=== PATIENT | male | born 1960 | race African-American/Black ===

== ENCOUNTER 2021-08-05 10:17 | Inpatient (IN) | payer OTHER ==
[2021-08-05] MEDS ORDERED: LIDOCAINE 5% TOPICAL PATCH TP ONE (11:18)
[2021-08-05] MEDS ORDERED: ACETAMINOPHEN 1000 MG/100 ML VIAL IVPB ONE (11:18)
[2021-08-05] MEDS ORDERED: LIDOCAINE 5% TOPICAL PATCH ONE (12:02)
[2021-08-05] MEDS ORDERED: ACETAMINOPHEN INJECTION 100 ML IVPB ONE (12:03)
[2021-08-05 12:09] LABS: BASO % 0.6 % (0-2.0); EOS % 0.1 % (0-4.5); HEMATOCRIT 32.4 % (35.4-49); HEMOGLOBIN 10.5 GM/dL (11.7-16.9); LYMPH % 18.6 % (8-40); MCH 23.7 pg (25.7-33.7); MCHC 32.6 g/dl (32.0-35.9); MEAN CELL VOLUME 72.6 fl (80-96); MEAN PLT VOLUME 8.4 fl (7.5-11.1); MONO % 10.6 % (3.8-10.2); NEUT % 70.1 % (42.8-82.8); PLATELET COUNT 119 10^3/uL (134-434); RBC 4.46 M/mm3 (4.00-5.60); RDW 15.9 % (11.9-15.9); WHITE BLOOD COUNT 5.5 K/mm3 (4.0-10.0)
[2021-08-05 12:10] LABS: VENOUS BASE EXCESS 0.2 mmol/L (-2-2); VENOUS O2 SATURATION 24.7 % (70-80); VENOUS PCO2 44.7 mmHg (38-52); VENOUS PH 7.376 (7.310-7.410)
[2021-08-05 12:16] LABS: INR 1.49 (0.83-1.09); PROTHROMBIN TIME (PATIENT) 16.7 SEC (9.7-13.0)
[2021-08-05 12:18] LABS: ACTIVATED PTT 35.4 SECONDS (25.2-36.5)
[2021-08-05 12:20] LABS: EPI CELLS 3 /uL (0-25.1); HYALINE CASTS 0 /uL (0-3.1); PH,URINE >= 9.0 (5.0-8.0); URINE APPEARANCE CLEAR; URINE BACTERIA 1 /uL (0-1359); URINE BILIRUBIN NEGATIVE (NEGATIVE); URINE COLOR YELLOW; URINE GLUCOSE (UA) NEGATIVE (NEGATIVE); URINE KETONE NEGATIVE (NEGATIVE); URINE LEUK ESTERASE NEGATIVE (NEGATIVE); URINE NITRITE NEGATIVE (NEGATIVE); URINE PROTEIN 3+ (NEGATIVE); URINE RBC 11 /uL (0-23.9); URINE UROBILINOGEN 0.2 mg/dL (0.2-1.0); URINE WBC 2 /uL (0-25.8)
[2021-08-05 12:27] LABS: CHLORIDE 96 mmol/L (98-107); SODIUM 132 mmol/L (136-145)
[2021-08-05 12:29] LABS: CALCIUM 8.7 mg/dL (8.5-10.1)
[2021-08-05 12:30] LABS: ALBUMIN 3.3 g/dl (3.4-5.0); ANION GAP 12 MMOL/L (8-16); BLOOD UREA NITROGEN 58.8 mg/dL (7-18); CO2 25 mmol/L (21-32); GLUCOSE,RANDOM 88 mg/dL (74-106); MAGNESIUM 2.8 mg/dL (1.8-2.4)
[2021-08-05 12:33] LABS: PHOSPHOROUS 4.5 mg/dL (2.5-4.9); SGOT/AST 34 U/L (15-37); SGPT/ALT 39 U/L (13-61)
[2021-08-05 12:34] LABS: BILIRUBIN,TOTAL 0.5 mg/dL (0.2-1); TOT PROT 7.2 g/dl (6.4-8.2)
[2021-08-05 12:36] LABS: ALK PHOS 82 U/L (45-117)
[2021-08-05 13:07] LABS: CREATININE 11.3 mg/dL (0.55-1.3)
[2021-08-05] MEDS ORDERED: ASPIRIN 81 MG CHEWABLE TABLETS PO ONE (13:48)
[2021-08-05] MEDS ORDERED: ASPIRIN 81 MG CHEWABLE TABLETS ONE (14:19)
[2021-08-05] MEDS ORDERED: ACETAMINOPHEN 325 MG TABLET (FP) PO PRN (15:05)
[2021-08-05] MEDS ORDERED: DEXAMETHASONE SOD PHOSPHATE 10 MG/1 ML VIAL IVPUSH ONE (15:58)
[2021-08-05] MEDS ORDERED: DEXAMETHASONE SOD PHOSPHATE 10 MG/1 ML VIAL ONE (16:31)
[2021-08-05] MEDS: INSULIN SLIDING SCALE (NOVOLOG) 1 VIAL SQ SCH ×2 (16:54→22:47)
[2021-08-05] MEDS ORDERED: ATORVASTATIN CA 20 MG TABLET (FP) ONE (22:00)
[2021-08-05] MEDS ORDERED: LIDOCAINE PATCH REMOVAL MC ONE (22:00)
[2021-08-05] MEDS ORDERED: APIXABAN 5 MG TABLET ONE (22:01)
[2021-08-05] MEDS: ATORVASTATIN CA 20 MG TABLET (FP) PO SCH (22:05)
[2021-08-05] MEDS: APIXABAN 5 MG TABLET PO SCH (22:05)
[2021-08-05] MEDS ORDERED: SODIUM CHLORIDE 250 ML IV PRN (22:41)
[2021-08-06] MEDS: INSULIN SLIDING SCALE (NOVOLOG) 1 VIAL SQ SCH ×4 (07:59→22:37)
[2021-08-06 08:04] LABS: BASO % 0.2 % (0-2.0); HEMATOCRIT 33.1 % (35.4-49); MCH 23.7 pg (25.7-33.7); MCHC 33.1 g/dl (32.0-35.9); MEAN CELL VOLUME 71.5 fl (80-96); MEAN PLT VOLUME 9.6 fl (7.5-11.1); MONO % 4.2 % (3.8-10.2); NEUT % 84.6 % (42.8-82.8); PLATELET COUNT 127 10^3/uL (134-434); RBC 4.63 M/mm3 (4.00-5.60); RDW 15.8 % (11.9-15.9); WHITE BLOOD COUNT 4.8 K/mm3 (4.0-10.0)
[2021-08-06 08:20] LABS: CHLORIDE 97 mmol/L (98-107); SODIUM 138 mmol/L (136-145)
[2021-08-06 08:22] LABS: CALCIUM 8.5 mg/dL (8.5-10.1)
[2021-08-06 08:23] LABS: ALBUMIN 2.9 g/dl (3.4-5.0); ANION GAP 12 MMOL/L (8-16); CO2 29 mmol/L (21-32); GLUCOSE,RANDOM 152 mg/dL (74-106)
[2021-08-06 08:25] LABS: CREATININE 6.9 mg/dL (0.55-1.3); SGPT/ALT 40 U/L (13-61)
[2021-08-06 08:26] LABS: SGOT/AST 35 U/L (15-37)
[2021-08-06 08:27] LABS: BILIRUBIN,TOTAL 0.5 mg/dL (0.2-1); TOT PROT 6.8 g/dl (6.4-8.2)
[2021-08-06 08:28] LABS: ALK PHOS 81 U/L (45-117)
[2021-08-06] MEDS: FAMOTIDINE 20 MG TABLET PO SCH (08:30)
[2021-08-06] MEDS: METOPROLOL TARTRATE 50 MG TABLET (FP) PO SCH ×2 (08:30→22:35)
[2021-08-06] MEDS: APIXABAN 5 MG TABLET PO SCH (08:30)
[2021-08-06] MEDS: FERROUS SO4 325 MG TABLET (FP) PO SCH (08:30)
[2021-08-06 09:03] LABS: BLOOD UREA NITROGEN 31.4 mg/dL (7-18)
[2021-08-06] MEDS ORDERED: METOPROLOL TARTRATE 50 MG TABLET (FP) ONE (09:18)
[2021-08-06] MEDS ORDERED: APIXABAN 5 MG TABLET ONE (09:18)
[2021-08-06] MEDS ORDERED: FAMOTIDINE 20 MG TABLET ONE (09:18)
[2021-08-06] MEDS ORDERED: levETIRAcetam 500 MG TABLET (FP) PO ONE (09:18)
[2021-08-06] MEDS ORDERED: FERROUS SO4 325 MG TABLET (FP) ONE (09:19)
[2021-08-06] MEDS ORDERED: NIFEdipine E.R. 30 MG TABLET ONE (09:19)
[2021-08-06] MEDS ORDERED: LOSARTAN POTASSIUM 50 MG TABLET ONE (09:19)
[2021-08-06] MEDS ORDERED: levETIRAcetam 250 MG TABLET PO SCH (10:00)
[2021-08-06] MEDS ORDERED: LOSARTAN POTASSIUM 50 MG TABLET PO SCH (10:00)
[2021-08-06] MEDS ORDERED: NIFEdipine E.R 60 MG TABLET PO SCH (10:00)
[2021-08-06] MEDS: CINACALCET HCL 30 MG TAB (FP) PO SCH (10:30)
[2021-08-06] MEDS: EZETIMIBE 10 MG TABLET (FP) PO SCH (10:30)
[2021-08-06] MEDS ORDERED: SODIUM CHLORIDE NASAL SPRAY 44 ML BOTTLE NS ONE (11:02)
[2021-08-06] MEDS: DEXAMETHASONE SOD PHOSPHATE 10 MG/1 ML VIAL IVPUSH SCH (14:28)
[2021-08-06] MEDS ORDERED: REMDESIVIR 200 MG in SODIUM CHLORIDE 250 ML IVPB ONE (15:00)
[2021-08-06] MEDS ORDERED: DEXAMETHASONE SOD PHOSPHATE 10 MG/1 ML VIAL ONE (15:23)
[2021-08-06] MEDS ORDERED: VANCOMYCIN 1 GRAM (PRE-DOCKED) 1,000 MG/250 ML BAG IVPB ONE ×2 (17:38→23:30)
[2021-08-06] MEDS ORDERED: CEFTRIAXONE 1 GM/50 ML BAG ONE (20:29)
[2021-08-06] MEDS: CEFTRIAXONE 1 GM in DEXTROSE 5%-WATER - 50 ML IVPB SCH (20:35)
[2021-08-06 21:14] VITALS: BMI 27.0
[2021-08-06] MEDS ORDERED: APIXABAN 2.5 MG TABLET PO SCH (22:00)
[2021-08-06] MEDS: ATORVASTATIN CA 20 MG TABLET (FP) PO SCH (22:35)
[2021-08-06] MEDS: levETIRAcetam 250 MG TABLET PO SCH (22:35)
[2021-08-07 00:48] LABS: EPI CELLS 4 /uL (0-25.1); HYALINE CASTS 0 /uL (0-3.1); PH,URINE 8.5 (5.0-8.0); URINE APPEARANCE CLEAR; URINE BACTERIA 4 /uL (0-1359); URINE BILIRUBIN NEGATIVE (NEGATIVE); URINE COLOR YELLOW; URINE GLUCOSE (UA) TRACE (NEGATIVE); URINE KETONE NEGATIVE (NEGATIVE); URINE LEUK ESTERASE NEGATIVE (NEGATIVE); URINE NITRITE NEGATIVE (NEGATIVE); URINE PROTEIN 3+ (NEGATIVE); URINE RBC 3 /uL (0-23.9); URINE UROBILINOGEN 0.2 mg/dL (0.2-1.0); URINE WBC 3 /uL (0-25.8)
[2021-08-07] MEDS: INSULIN SLIDING SCALE (NOVOLOG) 1 VIAL SQ SCH ×4 (06:22→21:41)
[2021-08-07] MEDS: FERROUS SO4 325 MG TABLET (FP) PO SCH (08:39)
[2021-08-07] MEDS: METOPROLOL TARTRATE 50 MG TABLET (FP) PO SCH ×3 (08:46→21:39)
[2021-08-07 08:52] LABS: HEMOGLOBIN 11.2 GM/dL (11.7-16.9); LYMPH % 10.2 % (8-40); MCH 23.8 pg (25.7-33.7); MEAN CELL VOLUME 72.1 fl (80-96); MEAN PLT VOLUME 9.8 fl (7.5-11.1); MONO % 5.5 % (3.8-10.2); NEUT % 84.3 % (42.8-82.8); PLATELET COUNT 154 10^3/uL (134-434); RBC 4.71 M/mm3 (4.00-5.60); RDW 15.8 % (11.9-15.9)
[2021-08-07 09:03] LABS: CHLORIDE 95 mmol/L (98-107); SODIUM 136 mmol/L (136-145)
[2021-08-07 09:05] LABS: ALBUMIN 3.2 g/dl (3.4-5.0); ANION GAP 15 MMOL/L (8-16); CALCIUM 9.1 mg/dL (8.5-10.1); CO2 26 mmol/L (21-32)
[2021-08-07 09:06] LABS: GLUCOSE,RANDOM 83 mg/dL (74-106); MAGNESIUM 2.7 mg/dL (1.8-2.4)
[2021-08-07 09:08] LABS: SGOT/AST 53 U/L (15-37); SGPT/ALT 59 U/L (13-61)
[2021-08-07 09:09] LABS: LDH 267 U/L (87-246)
[2021-08-07 09:10] LABS: BILIRUBIN,TOTAL 0.5 mg/dL (0.2-1); TOT PROT 7.4 g/dl (6.4-8.2)
[2021-08-07 09:11] LABS: ALK PHOS 110 U/L (45-117)
[2021-08-07 09:37] LABS: BLOOD UREA NITROGEN 58.7 mg/dL (7-18); CREATININE 9.2 mg/dL (0.55-1.3)
[2021-08-07] MEDS ORDERED: APIXABAN 2.5 MG TABLET PO SCH (10:00)
[2021-08-07] MEDS ORDERED: DEXTROSE 5%-WATER - 50 ML IVPB ONE (10:23)
[2021-08-07] MEDS ORDERED: cefTRIAXone SODIUM 1 GM VIAL ONE (10:23)
[2021-08-07] MEDS: LOSARTAN POTASSIUM 50 MG TABLET PO SCH (10:34)
[2021-08-07] MEDS: ASPIRIN COATED 81 MG TABLET.EC PO SCH (10:34)
[2021-08-07] MEDS: CINACALCET HCL 30 MG TAB (FP) PO SCH (10:34)
[2021-08-07] MEDS: levETIRAcetam 250 MG TABLET PO SCH ×2 (10:35→21:39)
[2021-08-07] MEDS: EZETIMIBE 10 MG TABLET (FP) PO SCH (10:35)
[2021-08-07] MEDS: FAMOTIDINE 20 MG TABLET PO SCH (10:35)
[2021-08-07] MEDS: CEFTRIAXONE 1 GM in DEXTROSE 5%-WATER - 50 ML IVPB SCH (10:36)
[2021-08-07] MEDS: DEXAMETHASONE SOD PHOSPHATE 10 MG/1 ML VIAL IVPUSH SCH (10:36)
[2021-08-07 11:15] LABS: IRON SERUM 70 ug/dL (50-175); TOTAL IRON BINDING CAPACITY 154 ug/dL (250-450)
[2021-08-07] MEDS ORDERED: SODIUM CHLORIDE 250 ML IV PRN (11:39)
[2021-08-07] MEDS: REMDESIVIR 100 MG in SODIUM CHLORIDE 250 ML IVPB SCH (19:19)
[2021-08-07] MEDS: ATORVASTATIN CA 20 MG TABLET (FP) PO SCH (21:39)
[2021-08-07] MEDS: APIXABAN 5 MG TABLET PO SCH (21:39)
[2021-08-08] MEDS: INSULIN SLIDING SCALE (NOVOLOG) 1 VIAL SQ SCH ×4 (06:05→21:21)
[2021-08-08 08:34] LABS: BASO % 0.1 % (0-2.0); HEMATOCRIT 31.7 % (35.4-49); HEMOGLOBIN 10.3 GM/dL (11.7-16.9); LYMPH % 8.7 % (8-40); MCH 23.5 pg (25.7-33.7); MCHC 32.4 g/dl (32.0-35.9); MEAN CELL VOLUME 72.5 fl (80-96); MEAN PLT VOLUME 9.6 fl (7.5-11.1); MONO % 10.2 % (3.8-10.2); PLATELET COUNT 136 10^3/uL (134-434); RBC 4.37 M/mm3 (4.00-5.60); RDW 15.8 % (11.9-15.9); WHITE BLOOD COUNT 6.5 K/mm3 (4.0-10.0)
[2021-08-08] MEDS ORDERED: cefTRIAXone SODIUM 1 GM VIAL ONE (08:59)
[2021-08-08] MEDS ORDERED: DEXTROSE 5%-WATER - 50 ML IVPB ONE (08:59)
[2021-08-08 09:03] LABS: CHLORIDE 96 mmol/L (98-107); SODIUM 136 mmol/L (136-145)
[2021-08-08 09:12] LABS: SGPT/ALT 78 U/L (13-61)
[2021-08-08 09:13] LABS: ALBUMIN 2.7 g/dl (3.4-5.0); GLUCOSE,RANDOM 103 mg/dL (74-106)
[2021-08-08 09:14] LABS: BILIRUBIN,TOTAL 0.3 mg/dL (0.2-1); TOT PROT 6.3 g/dl (6.4-8.2)
[2021-08-08 09:15] LABS: ALK PHOS 114 U/L (45-117); CALCIUM 8.9 mg/dL (8.5-10.1)
[2021-08-08 09:16] LABS: ANION GAP 18 MMOL/L (8-16); CO2 22 mmol/L (21-32); MAGNESIUM 2.8 mg/dL (1.8-2.4); SGOT/AST 60 U/L (15-37)
[2021-08-08 09:22] LABS: BLOOD UREA NITROGEN 84.6 mg/dL (7-18); CREATININE 10.7 mg/dL (0.55-1.3)
[2021-08-08] MEDS: CEFTRIAXONE 1 GM in DEXTROSE 5%-WATER - 50 ML IVPB SCH (09:42)
[2021-08-08] MEDS: FAMOTIDINE 20 MG TABLET PO SCH (09:44)
[2021-08-08] MEDS: levETIRAcetam 250 MG TABLET PO SCH ×2 (09:44→21:21)
[2021-08-08] MEDS: METOPROLOL TARTRATE 50 MG TABLET (FP) PO SCH ×2 (09:44→21:21)
[2021-08-08] MEDS: LOSARTAN POTASSIUM 50 MG TABLET PO SCH (09:44)
[2021-08-08] MEDS: APIXABAN 5 MG TABLET PO SCH ×2 (09:44→21:22)
[2021-08-08] MEDS: CINACALCET HCL 30 MG TAB (FP) PO SCH (09:45)
[2021-08-08] MEDS: FERROUS SO4 325 MG TABLET (FP) PO SCH (09:45)
[2021-08-08] MEDS: ASPIRIN COATED 81 MG TABLET.EC PO SCH (09:45)
[2021-08-08] MEDS: DEXAMETHASONE SOD PHOSPHATE 10 MG/1 ML VIAL IVPUSH SCH (09:46)
[2021-08-08] MEDS: EZETIMIBE 10 MG TABLET (FP) PO SCH (09:56)
[2021-08-08] MEDS: REMDESIVIR 100 MG in SODIUM CHLORIDE 250 ML IVPB SCH (17:21)
[2021-08-08] MEDS: ATORVASTATIN CA 20 MG TABLET (FP) PO SCH (21:22)
[2021-08-09] MEDS: INSULIN SLIDING SCALE (NOVOLOG) 1 VIAL SQ SCH ×4 (06:04→21:47)
[2021-08-09 07:11] LABS: BASO % 0.1 % (0-2.0); HEMATOCRIT 33.6 % (35.4-49); LYMPH % 12.4 % (8-40); MCH 23.6 pg (25.7-33.7); MCHC 32.8 g/dl (32.0-35.9); MEAN CELL VOLUME 71.9 fl (80-96); MEAN PLT VOLUME 10.2 fl (7.5-11.1); MONO % 10.6 % (3.8-10.2); NEUT % 76.9 % (42.8-82.8); PLATELET COUNT 186 10^3/uL (134-434); RBC 4.67 M/mm3 (4.00-5.60); RDW 15.5 % (11.9-15.9); WHITE BLOOD COUNT 7.2 K/mm3 (4.0-10.0)
[2021-08-09 07:31] LABS: CHLORIDE 99 mmol/L (98-107); SODIUM 138 mmol/L (136-145)
[2021-08-09 07:33] LABS: CALCIUM 8.8 mg/dL (8.5-10.1)
[2021-08-09 07:34] LABS: ANION GAP 11 MMOL/L (8-16); BLOOD UREA NITROGEN 66.8 mg/dL (7-18); CO2 28 mmol/L (21-32); GLUCOSE,RANDOM 101 mg/dL (74-106); MAGNESIUM 2.4 mg/dL (1.8-2.4)
[2021-08-09 07:36] LABS: SGPT/ALT 113 U/L (13-61)
[2021-08-09 07:37] LABS: PHOSPHOROUS 6.4 mg/dL (2.5-4.9); SGOT/AST 73 U/L (15-37)
[2021-08-09 07:38] LABS: BILIRUBIN,TOTAL 0.4 mg/dL (0.2-1); TOT PROT 6.9 g/dl (6.4-8.2)
[2021-08-09 07:39] LABS: ALK PHOS 131 U/L (45-117)
[2021-08-09 07:40] LABS: LDH 260 U/L (87-246)
[2021-08-09 07:45] LABS: CREATININE 7.7 mg/dL (0.55-1.3)
[2021-08-09] MEDS ORDERED: cefTRIAXone SODIUM 1 GM VIAL ONE (08:21)
[2021-08-09] MEDS ORDERED: DEXTROSE 5%-WATER - 50 ML IVPB ONE (08:21)
[2021-08-09] MEDS: ASPIRIN COATED 81 MG TABLET.EC PO SCH (09:45)
[2021-08-09] MEDS: DEXAMETHASONE SOD PHOSPHATE 10 MG/1 ML VIAL IVPUSH SCH (09:45)
[2021-08-09] MEDS: LOSARTAN POTASSIUM 50 MG TABLET PO SCH (09:45)
[2021-08-09] MEDS: FERROUS SO4 325 MG TABLET (FP) PO SCH (09:45)
[2021-08-09] MEDS: FAMOTIDINE 20 MG TABLET PO SCH (09:46)
[2021-08-09] MEDS: APIXABAN 5 MG TABLET PO SCH ×2 (09:46→21:42)
[2021-08-09] MEDS: CEFTRIAXONE 1 GM in DEXTROSE 5%-WATER - 50 ML IVPB SCH (09:46)
[2021-08-09] MEDS: CINACALCET HCL 30 MG TAB (FP) PO SCH (09:46)
[2021-08-09] MEDS: EZETIMIBE 10 MG TABLET (FP) PO SCH (09:46)
[2021-08-09] MEDS: METOPROLOL TARTRATE 50 MG TABLET (FP) PO SCH ×2 (09:46→21:42)
[2021-08-09] MEDS: levETIRAcetam 250 MG TABLET PO SCH ×2 (09:46→21:42)
[2021-08-09] MEDS: REMDESIVIR 100 MG in SODIUM CHLORIDE 250 ML IVPB SCH (17:15)
[2021-08-09] MEDS: ATORVASTATIN CA 20 MG TABLET (FP) PO SCH (21:42)
[2021-08-10] MEDS: INSULIN SLIDING SCALE (NOVOLOG) 1 VIAL SQ SCH ×3 (06:19→17:25)
[2021-08-10] MEDS: FERROUS SO4 325 MG TABLET (FP) PO SCH (08:25)
[2021-08-10 08:41] LABS: EOS % 0.1 % (0-4.5); HEMATOCRIT 31.6 % (35.4-49); HEMOGLOBIN 10.4 GM/dL (11.7-16.9); LYMPH % 12.7 % (8-40); MCH 23.8 pg (25.7-33.7); MEAN CELL VOLUME 72.1 fl (80-96); MONO % 10.1 % (3.8-10.2); NEUT % 77.1 % (42.8-82.8); PLATELET COUNT 188 10^3/uL (134-434); RBC 4.38 M/mm3 (4.00-5.60); RDW 15.7 % (11.9-15.9); WHITE BLOOD COUNT 8.3 K/mm3 (4.0-10.0)
[2021-08-10] MEDS ORDERED: cefTRIAXone SODIUM 1 GM VIAL ONE (08:59)
[2021-08-10] MEDS ORDERED: DEXTROSE 5%-WATER - 50 ML IVPB ONE (08:59)
[2021-08-10 09:06] LABS: CHLORIDE 99 mmol/L (98-107); SODIUM 138 mmol/L (136-145)
[2021-08-10 09:11] LABS: ALBUMIN 2.6 g/dl (3.4-5.0); ANION GAP 15 MMOL/L (8-16); CALCIUM 8.7 mg/dL (8.5-10.1); CO2 24 mmol/L (21-32)
[2021-08-10 09:12] LABS: BLOOD UREA NITROGEN 91.3 mg/dL (7-18); GLUCOSE,RANDOM 90 mg/dL (74-106); MAGNESIUM 2.6 mg/dL (1.8-2.4)
[2021-08-10 09:14] LABS: SGOT/AST 65 U/L (15-37); SGPT/ALT 121 U/L (13-61)
[2021-08-10 09:15] LABS: BILIRUBIN,TOTAL 0.4 mg/dL (0.2-1); PHOSPHOROUS 6.5 mg/dL (2.5-4.9)
[2021-08-10 09:16] LABS: ALK PHOS 113 U/L (45-117)
[2021-08-10] MEDS: CEFTRIAXONE 1 GM in DEXTROSE 5%-WATER - 50 ML IVPB SCH (09:17)
[2021-08-10] MEDS: FAMOTIDINE 20 MG TABLET PO SCH (09:17)
[2021-08-10] MEDS: CINACALCET HCL 30 MG TAB (FP) PO SCH (09:17)
[2021-08-10] MEDS: EZETIMIBE 10 MG TABLET (FP) PO SCH (09:17)
[2021-08-10] MEDS: APIXABAN 5 MG TABLET PO SCH (09:18)
[2021-08-10] MEDS: levETIRAcetam 250 MG TABLET PO SCH (09:18)
[2021-08-10] MEDS: ASPIRIN COATED 81 MG TABLET.EC PO SCH (09:18)
[2021-08-10] MEDS: DEXAMETHASONE SOD PHOSPHATE 10 MG/1 ML VIAL IVPUSH SCH (09:19)
[2021-08-10 09:20] LABS: CREATININE 9.5 mg/dL (0.55-1.3)
[2021-08-10] MEDS ORDERED: SODIUM CHLORIDE 250 ML IV PRN (10:55)
[2021-08-10] MEDS ORDERED: REMDESIVIR 100 MG in SODIUM CHLORIDE 250 ML IVPB SCH (15:00)
[2021-08-10] MEDS: METOPROLOL TARTRATE 50 MG TABLET (FP) PO SCH (17:30)
[2021-08-10] MEDS: LOSARTAN POTASSIUM 50 MG TABLET PO SCH (17:30)
[2021-08-10 17:33] VITALS: BP 129/74; PULSE 67; TEMP 98
== END 2021-08-10 20:00 | disposition home or self-care (01) | DRG 177 ==
LOC: JER 10:17 → JERBED 13:33 → J4S 08-06 20:55
PROVIDERS: ADMIT Internal Medicine; ATTEND Internal Medicine
PROC: XW033E5 Introduction of Remdesivir Anti-infective into Peripheral Vein, Percutaneous Approach, New Technology Group 5 (ICD-10-PCS; principal; 2021-08-06)
PROC: 5A1D70Z Performance of Urinary Filtration, Intermittent, Less than 6 Hours Per Day (ICD-10-PCS; 2021-08-06)
PROC: 5A1D70Z Performance of Urinary Filtration, Intermittent, Less than 6 Hours Per Day (ICD-10-PCS; 2021-08-08)
PROC: 5A1D70Z Performance of Urinary Filtration, Intermittent, Less than 6 Hours Per Day (ICD-10-PCS; 2021-08-10)
DX: U07.1 COVID-19 (principal); N18.6 End stage renal disease; I50.33 Acute on chronic diastolic (congestive) heart failure; J96.01 Acute respiratory failure with hypoxia; J12.82 Pneumonia due to coronavirus disease 2019; I13.2 Hypertensive heart and chronic kidney disease with heart failure and with stage 5 chronic kidney disease, or end stage renal disease; I24.8 Other forms of acute ischemic heart disease; I69.351 Hemiplegia and hemiparesis following cerebral infarction affecting right dominant side; E78.5 Hyperlipidemia, unspecified; E87.70 Fluid overload, unspecified; M54.50 Low back pain, unspecified; G40.909 Epilepsy, unspecified, not intractable, without status epilepticus; I25.119 Atherosclerotic heart disease of native coronary artery with unspecified angina pectoris; D69.6 Thrombocytopenia, unspecified; I48.0 Paroxysmal atrial fibrillation; R94.6 Abnormal results of thyroid function studies; Z86.73 Personal history of transient ischemic attack (TIA), and cerebral infarction without residual deficits; Z95.5 Presence of coronary angioplasty implant and graft; Z99.2 Dependence on renal dialysis
CPT/HCPCS: 36415; 71045-TC-FY; 73523-TC-FY; 80053; 81003; 82550; 82553; 82728; 82803; 82962; 83036; 83540; 83550; 83615; 83735; 84100; 84439; 84443; 84481; 84484; 85025; 85379; 85610; 85730; 86140; 86803; 87040; 87086; 87340; 87804; 93005; 93010; 94761; 99291; C9399; C9803; J0131; J1100; U0003; U0005

== ENCOUNTER 2021-08-20 02:48 | Inpatient (IN) | payer OTHER ==
[2021-08-20 02:51] VITALS: BMI 26.9
[2021-08-20] MEDS ORDERED: ACETAMINOPHEN 500 MG TABLET (FP) PO ONE (03:34)
[2021-08-20] MEDS ORDERED: ACETAMINOPHEN 325 MG TABLET (FP) ONE (04:04)
[2021-08-20 04:39] LABS: BASO % 0.9 % (0-2.0); EOS % 1.6 % (0-4.5); HEMATOCRIT 27.3 % (35.4-49); HEMOGLOBIN 8.8 GM/dL (11.7-16.9); LYMPH % 7.4 % (8-40); MCH 23.7 pg (25.7-33.7); MCHC 32.4 g/dl (32.0-35.9); MEAN CELL VOLUME 73.2 fl (80-96); MEAN PLT VOLUME 7.6 fl (7.5-11.1); MONO % 9.8 % (3.8-10.2); NEUT % 80.3 % (42.8-82.8); PLATELET COUNT 265 10^3/uL (134-434); RBC 3.73 M/mm3 (4.00-5.60); WHITE BLOOD COUNT 12.5 K/mm3 (4.0-10.0)
[2021-08-20 04:45] LABS: INR 1.25 (0.83-1.09)
[2021-08-20 04:48] LABS: ACTIVATED PTT 24.3 SECONDS (25.2-36.5)
[2021-08-20 04:58] LABS: CHLORIDE 98 mmol/L (98-107); SODIUM 135 mmol/L (136-145)
[2021-08-20 05:00] LABS: CALCIUM 8.1 mg/dL (8.5-10.1)
[2021-08-20 05:01] LABS: ALBUMIN 2.4 g/dl (3.4-5.0); ANION GAP 11 MMOL/L (8-16); CO2 26 mmol/L (21-32); GLUCOSE,RANDOM 86 mg/dL (74-106); MAGNESIUM 2.8 mg/dL (1.8-2.4)
[2021-08-20 05:04] LABS: PHOSPHOROUS 4.2 mg/dL (2.5-4.9); SGOT/AST 25 U/L (15-37); SGPT/ALT 32 U/L (13-61)
[2021-08-20 05:05] LABS: TOT PROT 6.6 g/dl (6.4-8.2)
[2021-08-20 05:07] LABS: ALK PHOS 92 U/L (45-117)
[2021-08-20 05:30] LABS: BILIRUBIN,TOTAL 0.4 mg/dL (0.2-1); CREATININE 9.2 mg/dL (0.55-1.3)
[2021-08-20] MEDS ORDERED: ASPIRIN 81 MG CHEWABLE TABLETS PO ONE (05:47)
[2021-08-20] MEDS ORDERED: ASPIRIN 81 MG CHEWABLE TABLETS ONE (05:51)
[2021-08-20] MEDS ORDERED: AZITHROMYCIN IVPB 500 MG in DEXTROSE 5%-WATER - 250 ML IVPB ONE (06:24)
[2021-08-20] MEDS ORDERED: VANCOMYCIN 1 GM in D5W (PRE-DOCKED) 1,000 MG/250 ML IVPB ONE (06:26)
[2021-08-20] MEDS ORDERED: AZITHROMYCIN IVPB 500 MG/250 ML BAG IVPB ONE (06:40)
[2021-08-20 07:50] LABS: CHLORIDE 96 mmol/L (98-107); SODIUM 135 mmol/L (136-145)
[2021-08-20 07:52] LABS: ALBUMIN 2.7 g/dl (3.4-5.0); ANION GAP 11 MMOL/L (8-16); BLOOD UREA NITROGEN 45.8 mg/dL (7-18); CALCIUM 8.2 mg/dL (8.5-10.1); CO2 28 mmol/L (21-32)
[2021-08-20 07:53] LABS: GLUCOSE,RANDOM 56 mg/dL (74-106)
[2021-08-20 07:55] LABS: SGOT/AST 25 U/L (15-37); SGPT/ALT 36 U/L (13-61)
[2021-08-20 07:57] LABS: BILIRUBIN,TOTAL 0.6 mg/dL (0.2-1); TOT PROT 6.9 g/dl (6.4-8.2)
[2021-08-20 07:58] LABS: ALK PHOS 96 U/L (45-117)
[2021-08-20 08:59] LABS: N-TERMINAL BNP 39163.4 pg/ml (5-125)
[2021-08-20] MEDS ORDERED: DEXTROSE 50%-WATER - 25 GM/50 ML VIAL IVPUSH ONE (09:17)
[2021-08-20] MEDS ORDERED: levETIRAcetam 500 MG TABLET (FP) PO SCH (10:00)
[2021-08-20] MEDS ORDERED: APIXABAN 5 MG TABLET ONE (10:37)
[2021-08-20] MEDS ORDERED: levETIRAcetam 500 MG TABLET (FP) PO ONE ×2 (10:37→22:36)
[2021-08-20] MEDS ORDERED: DEXTROSE 50%-WATER 25 GM/50 ML DISP.SYRIN ONE (10:38)
[2021-08-20] MEDS ORDERED: METOPROLOL TARTRATE 50 MG TABLET (FP) ONE (10:38)
[2021-08-20] MEDS: APIXABAN 5 MG TABLET PO SCH ×2 (11:00→22:43)
[2021-08-20] MEDS: CINACALCET HCL 30 MG TAB (FP) PO SCH (11:00)
[2021-08-20] MEDS: METOPROLOL TARTRATE 50 MG TABLET (FP) PO SCH ×2 (11:00→22:43)
[2021-08-20] MEDS: SEVELAMER CARBONATE 800 MG TAB (FP) PO SCH ×2 (11:44→18:06)
[2021-08-20] MEDS ORDERED: FUROSEMIDE 40 MG/4 ML INJECTABLE VIAL IVPB ONE (18:21)
[2021-08-20] MEDS ORDERED: FUROSEMIDE 40 MG/4 ML INJECTABLE VIAL ONE (18:55)
[2021-08-20] MEDS ORDERED: levETIRAcetam 250 MG TABLET PO ONE (22:36)
[2021-08-20] MEDS: ATORVASTATIN CA 20 MG TABLET (FP) PO SCH (22:43)
[2021-08-20] MEDS ORDERED: ACETAMINOPHEN 1000 MG/100 ML VIAL IVPB ONE (23:14)
[2021-08-21 01:58] LABS: HEMATOCRIT 26.4 % (35.4-49); HEMOGLOBIN 8.5 GM/dL (11.7-16.9); MCH 23.4 pg (25.7-33.7); MCHC 32.2 g/dl (32.0-35.9); MEAN CELL VOLUME 72.5 fl (80-96); MEAN PLT VOLUME 7.5 fl (7.5-11.1); PLATELET COUNT 284 10^3/uL (134-434); RBC 3.63 M/mm3 (4.00-5.60); RDW 15.5 % (11.9-15.9); WHITE BLOOD COUNT 14.9 K/mm3 (4.0-10.0)
[2021-08-21] MEDS ORDERED: SODIUM CHLORIDE 250 ML IV PRN ×2 (07:41→11:19)
[2021-08-21] MEDS ORDERED: levETIRAcetam 500 MG TABLET (FP) PO ONE ×2 (10:19→21:26)
[2021-08-21] MEDS ORDERED: levETIRAcetam 250 MG TABLET PO ONE ×2 (10:20→21:27)
[2021-08-21] MEDS: SEVELAMER CARBONATE 800 MG TAB (FP) PO SCH ×3 (10:27→17:45)
[2021-08-21] MEDS: METOPROLOL TARTRATE 50 MG TABLET (FP) PO SCH ×2 (10:27→21:29)
[2021-08-21] MEDS: APIXABAN 5 MG TABLET PO SCH ×2 (10:27→21:29)
[2021-08-21] MEDS: CINACALCET HCL 30 MG TAB (FP) PO SCH (10:27)
[2021-08-21] MEDS: ATORVASTATIN CA 20 MG TABLET (FP) PO SCH (21:29)
[2021-08-22] MEDS ORDERED: NITROGLYCERIN 50 MG/10 ML VIAL IVPB SCH (03:45)
[2021-08-22] MEDS ORDERED: MAG HYDROX/AL HYDROX/SIMETH 30 ML UNIT-DOSE CUP PO ONE (03:45)
[2021-08-22] MEDS ORDERED: NITROGLYCERIN 2% OINTMENT - 1GM PACKET TD ONE ×2 (03:46→03:49)
[2021-08-22] MEDS ORDERED: SODIUM CHLORIDE 250 ML IV PRN (07:16)
[2021-08-22 07:32] LABS: HEMATOCRIT 23.5 % (35.4-49); HEMOGLOBIN 7.7 GM/dL (11.7-16.9); MCH 23.8 pg (25.7-33.7); MCHC 32.6 g/dl (32.0-35.9); MEAN CELL VOLUME 72.8 fl (80-96); MEAN PLT VOLUME 7.3 fl (7.5-11.1); PLATELET COUNT 225 10^3/uL (134-434); RBC 3.22 M/mm3 (4.00-5.60); RDW 15.3 % (11.9-15.9); WHITE BLOOD COUNT 7.3 K/mm3 (4.0-10.0)
[2021-08-22 07:59] LABS: BLOOD UREA NITROGEN 43.9 mg/dL (7-18); CALCIUM 8.5 mg/dL (8.5-10.1)
[2021-08-22 08:00] LABS: ALBUMIN 2.5 g/dl (3.4-5.0)
[2021-08-22] MEDS ORDERED: EPOETIN ALFA-EPBX 10,000 UNIT/ML VIAL SQ ONE ×2 (08:00→11:19)
[2021-08-22 08:01] LABS: MAGNESIUM 2.7 mg/dL (1.8-2.4)
[2021-08-22 08:02] LABS: BILIRUBIN,TOTAL 0.5 mg/dL (0.2-1); CREATININE 7.4 mg/dL (0.55-1.3); PHOSPHOROUS 5.1 mg/dL (2.5-4.9); TOT PROT 6.2 g/dl (6.4-8.2)
[2021-08-22] MEDS ORDERED: levETIRAcetam 250 MG TABLET PO ONE ×2 (10:26→21:34)
[2021-08-22] MEDS ORDERED: levETIRAcetam 500 MG TABLET (FP) PO ONE ×2 (10:26→21:34)
[2021-08-22] MEDS: CINACALCET HCL 30 MG TAB (FP) PO SCH (11:11)
[2021-08-22] MEDS: APIXABAN 5 MG TABLET PO SCH ×2 (11:12→21:35)
[2021-08-22] MEDS: METOPROLOL TARTRATE 50 MG TABLET (FP) PO SCH ×2 (11:12→21:35)
[2021-08-22] MEDS: SEVELAMER CARBONATE 800 MG TAB (FP) PO SCH ×3 (11:13→17:18)
[2021-08-22] MEDS: ATORVASTATIN CA 20 MG TABLET (FP) PO SCH (21:35)
[2021-08-22 21:54] LABS: ANISOCYTOSIS 1+; MACROCYTOSIS 0; PLATELET ESTIMATE NORMAL
[2021-08-23 08:09] LABS: CALCIUM 8.9 mg/dL (8.5-10.1)
[2021-08-23 08:10] LABS: ALBUMIN 2.4 g/dl (3.4-5.0); BILIRUBIN,DIRECT 0.2 mg/dL (0.0-0.2); BLOOD UREA NITROGEN 29.7 mg/dL (7-18); MAGNESIUM 2.4 mg/dL (1.8-2.4)
[2021-08-23 08:12] LABS: PHOSPHOROUS 4.3 mg/dL (2.5-4.9)
[2021-08-23 08:14] LABS: BILIRUBIN,TOTAL 0.6 mg/dL (0.2-1); TOT PROT 6.5 g/dl (6.4-8.2)
[2021-08-23 08:20] LABS: MCH 23.9 pg (25.7-33.7); MCHC 32.2 g/dl (32.0-35.9); MEAN CELL VOLUME 74.2 fl (80-96); MEAN PLT VOLUME 7.6 fl (7.5-11.1); PLATELET COUNT 213 10^3/uL (134-434); RBC 3.36 M/mm3 (4.00-5.60); RDW 16.1 % (11.9-15.9); WHITE BLOOD COUNT 6.3 K/mm3 (4.0-10.0)
[2021-08-23] MEDS ORDERED: SODIUM CHLORIDE 250 ML IV PRN (09:12)
[2021-08-23] MEDS ORDERED: levETIRAcetam 250 MG TABLET PO ONE (09:14)
[2021-08-23] MEDS ORDERED: levETIRAcetam 500 MG TABLET (FP) PO ONE (09:14)
[2021-08-23] MEDS ORDERED: FUROSEMIDE 40 MG/4 ML INJECTABLE VIAL IVPUSH ONE (09:15)
[2021-08-23] MEDS: APIXABAN 5 MG TABLET PO SCH (09:43)
[2021-08-23] MEDS: CINACALCET HCL 30 MG TAB (FP) PO SCH (09:43)
[2021-08-23] MEDS: METOPROLOL TARTRATE 50 MG TABLET (FP) PO SCH (09:43)
[2021-08-23] MEDS: SEVELAMER CARBONATE 800 MG TAB (FP) PO SCH ×2 (09:43→12:32)
[2021-08-23 10:07] LABS: ANTIGLOMERULAR BASEMENT MEN.AB 3 units (0-20)
[2021-08-23 14:45] VITALS: BP 119/74; PULSE 82; TEMP 98
[2021-08-23 16:08] LABS: ATYPICAL pANCA <1:20 titer (Neg:<1:20); C-ANCA <1:20 titer (Neg:<1:20)
[2021-08-24] MEDS ORDERED: EPOETIN ALFA-EPBX 10,000 UNIT/ML VIAL SQ ONE (09:12)
== END 2021-08-23 19:00 | disposition short-term general hospital (02) | DRG 280 ==
LOC: JER 02:48 → JERBED 06:18 → J4S 21:17 → UNDODISIN 08-21 14:59
PROVIDERS: ADMIT Internal Medicine; ATTEND Internal Medicine
PROC: 5A1D70Z Performance of Urinary Filtration, Intermittent, Less than 6 Hours Per Day (ICD-10-PCS; principal; 2021-08-22)
DX: I21.4 Non-ST elevation (NSTEMI) myocardial infarction (principal); N18.6 End stage renal disease; I50.33 Acute on chronic diastolic (congestive) heart failure; J96.91 Respiratory failure, unspecified with hypoxia; I13.2 Hypertensive heart and chronic kidney disease with heart failure and with stage 5 chronic kidney disease, or end stage renal disease; I69.351 Hemiplegia and hemiparesis following cerebral infarction affecting right dominant side; R04.2 Hemoptysis; I87.1 Compression of vein; I25.10 Atherosclerotic heart disease of native coronary artery without angina pectoris; I48.0 Paroxysmal atrial fibrillation; E16.2 Hypoglycemia, unspecified; E78.00 Pure hypercholesterolemia, unspecified; E87.70 Fluid overload, unspecified; G40.909 Epilepsy, unspecified, not intractable, without status epilepticus; D72.829 Elevated white blood cell count, unspecified; I48.91 Unspecified atrial fibrillation; D50.0 Iron deficiency anemia secondary to blood loss (chronic); Z95.5 Presence of coronary angioplasty implant and graft; Z99.2 Dependence on renal dialysis; Z86.16 Personal history of COVID-19
CPT/HCPCS: 36415; 71045-TC-FY; 71275-TC; 80053; 80061; 82248; 82550; 82553; 82962; 83010; 83516; 83520; 83540; 83550; 83615; 83735; 83880; 84100; 84481; 84484; 85025; 85027; 85610; 85730; 86140; 86256; 86850; 86900; 86901; 87040; 93005; 93010; 93306-TC; 99285-25; C9803; J0131; Q5106; Q9967; U0003; U0005

== ENCOUNTER 2021-09-13 14:16 | Emergency (ER) | payer OTHER ==
[2021-09-13 14:43] VITALS: TEMP 98.7; BMI 27.3
[2021-09-13 17:09] LABS: VENOUS BASE EXCESS 1.7 mmol/L (-2-2); VENOUS O2 SATURATION 77.4 % (70-80); VENOUS PH 7.4 (7.310-7.410)
[2021-09-13 17:27] LABS: CHLORIDE 97 mmol/L (98-107); SODIUM 136 mmol/L (136-145)
[2021-09-13 17:30] LABS: ANION GAP 11 MMOL/L (8-16); BLOOD UREA NITROGEN 31.9 mg/dL (7-18); CALCIUM 8.5 mg/dL (8.5-10.1); CO2 28 mmol/L (21-32); GLUCOSE,RANDOM 118 mg/dL (74-106)
[2021-09-13 17:31] LABS: ALBUMIN 2.1 g/dl (3.4-5.0)
[2021-09-13 17:33] LABS: BILIRUBIN,DIRECT 0.1 mg/dL (0.0-0.2); CREATININE 5.5 mg/dL (0.55-1.3); SGOT/AST 36 U/L (15-37); SGPT/ALT 31 U/L (13-61)
[2021-09-13 17:35] LABS: BASO % 0.7 % (0-2.0); BILIRUBIN,TOTAL 0.3 mg/dL (0.2-1); EOS % 1.1 % (0-4.5); HEMATOCRIT 21.6 % (35.4-49); LDH 246 U/L (87-246); LYMPH % 3.8 % (8-40); MCH 27.1 pg (25.7-33.7); MCHC 32.4 g/dl (32.0-35.9); MEAN CELL VOLUME 83.8 fl (80-96); MEAN PLT VOLUME 7.5 fl (7.5-11.1); MONO % 12.1 % (3.8-10.2); NEUT % 82.3 % (42.8-82.8); PLATELET COUNT 437 10^3/uL (134-434); RBC 2.58 M/mm3 (4.00-5.60); RDW 18.8 % (11.9-15.9); TOT PROT 5.7 g/dl (6.4-8.2); WHITE BLOOD COUNT 9.7 K/mm3 (4.0-10.0)
[2021-09-13 17:36] LABS: ALK PHOS 197 U/L (45-117)
[2021-09-13 17:42] LABS: INR 1.53 (0.83-1.09); PROTHROMBIN TIME (PATIENT) 17.7 SEC (9.7-13.0)
[2021-09-13 17:44] LABS: ACTIVATED PTT 30.5 SECONDS (25.2-36.5)
[2021-09-13] MEDS ORDERED: PIPERACILLIN/TAZOB 4.5 GM 4.5 GM in DEXTROSE 5%-WATER 100 ML IVPB ONE (18:44)
[2021-09-13] MEDS ORDERED: PIPERACILLIN/TAZOB 4.5 GM 4.5 GM/100 ML BAG IVPB ONE (19:02)
[2021-09-14 01:09] VITALS: BP 150/74; PULSE 90
== END 2021-09-14 01:17 | disposition short-term general hospital (02) ==
LOC: JER 14:16
DX: R06.02 Shortness of breath (principal); R09.02 Hypoxemia; J18.9 Pneumonia, unspecified organism
CPT/HCPCS: 36415; 71045-TC-FY; 80053; 82248; 82550; 82728; 82803; 83605; 83615; 84484; 85025; 85610; 85730; 86140; 87040; 87804; 93005; 93010; 99285-25; C9803; U0003; U0005

== ENCOUNTER 2022-02-25 11:58 | Inpatient (IN) | payer OTHER ==
[2022-02-25] MEDS ORDERED: VANCOMYCIN 1 GM in D5W (PRE-DOCKED) 1,000 MG/250 ML IVPB ONE (14:43)
[2022-02-25] MEDS ORDERED: PIPERACILLIN/TAZOB 3.375 GM 3.375 GM in DEXTROSE 5%-WATER - 50 ML IVPB ONE (14:43)
[2022-02-25] MEDS ORDERED: ACETAMINOPHEN 1000 MG/100 ML BAG IVPB ONE (14:49)
[2022-02-25] MEDS ORDERED: ACETAMINOPHEN INJECTION 100 ML IVPB ONE (15:13)
[2022-02-25] MEDS ORDERED: VANCOMYCIN 1 GRAM (PRE-DOCKED) 1,000 MG/250 ML BAG IVPB ONE (15:13)
[2022-02-25] MEDS ORDERED: PIPERACILLIN/TAZOB 3.375 GM 3.375 GM/50 ML BAG IVPB ONE (15:14)
[2022-02-25 16:49] LABS: BASO % 0.6 % (0-2.0); EOS % 2.2 % (0-4.5); HEMATOCRIT 36.6 % (35.4-49); HEMOGLOBIN 11.5 GM/dL (11.7-16.9); MCHC 31.4 g/dl (32.0-35.9); MEAN CELL VOLUME 76.5 fl (80-96); MEAN PLT VOLUME 9.8 fl (7.5-11.1); NEUT % 77.2 % (42.8-82.8); PLATELET COUNT 198 10^3/uL (134-434); RBC 4.79 M/mm3 (4.00-5.60); RDW 18.6 % (11.9-15.9)
[2022-02-25 16:58] LABS: ALBUMIN 4.1 g/dl (3.4-5.0); BLOOD UREA NITROGEN 33.7 mg/dL (7-18); CALCIUM 9.9 mg/dL (8.5-10.1)
[2022-02-25 17:01] LABS: CREATININE 5.6 mg/dL (0.55-1.3)
[2022-02-25 17:03] LABS: BILIRUBIN,TOTAL 1.1 mg/dL (0.2-1); TOT PROT 8.9 g/dl (6.4-8.2)
[2022-02-25 17:16] LABS: INR 1.36 (0.83-1.09); PROTHROMBIN TIME (PATIENT) 15.7 SEC (9.7-13.0)
[2022-02-25 17:19] LABS: ACTIVATED PTT 37.8 SECONDS (25.2-36.5)
[2022-02-26] MEDS: SEVELAMER CARBONATE 800 MG TAB (FP) PO SCH ×3 (09:28→16:57)
[2022-02-26] MEDS: CINACALCET HCL 30 MG TAB (FP) PO SCH (09:29)
[2022-02-26] MEDS: CALCITRIOL 0.25 MCG CAPSULE (FP) PO SCH (09:29)
[2022-02-26] MEDS: POLYETHYLENE GLYCOL (HEALTHYLAX) 3350 17 GM PACKET PO SCH (09:30)
[2022-02-26] MEDS ORDERED: ENOXAPARIN NA (PORCINE) 40 MG/0.4 ML DISP.SYRIN SQ SCH (10:00)
[2022-02-26] MEDS ORDERED: DIPHTH,PERTUSS(ACELL),TET 0.5 ML DISP.SYRIN IM ONE (10:00)
[2022-02-26 10:12] LABS: BASO % 0.9 % (0-2.0); EOS % 3.4 % (0-4.5); HEMATOCRIT 35.1 % (35.4-49); HEMOGLOBIN 11.1 GM/dL (11.7-16.9); LYMPH % 13.9 % (8-40); MCH 24.3 pg (25.7-33.7); MCHC 31.7 g/dl (32.0-35.9); MEAN CELL VOLUME 76.6 fl (80-96); MEAN PLT VOLUME 9.5 fl (7.5-11.1); NEUT % 70.8 % (42.8-82.8); PLATELET COUNT 180 10^3/uL (134-434); RBC 4.58 M/mm3 (4.00-5.60); RDW 18.4 % (11.9-15.9); WHITE BLOOD COUNT 7.4 K/mm3 (4.0-10.0)
[2022-02-26] MEDS ORDERED: PIPERACILLIN/TAZOB 2.25 GM 2.25 GM in DEXTROSE 5%-WATER - 50 ML IVPB SCH (11:30)
[2022-02-26 11:31] LABS: CALCIUM 10.1 mg/dL (8.5-10.1); CHLORIDE 96 mmol/L (98-107); CO2 27 mmol/L (21-32); GLUCOSE,RANDOM 81 mg/dL (74-106); SODIUM 135 mmol/L (136-145)
[2022-02-26 11:32] LABS: MAGNESIUM 2.4 mg/dL (1.8-2.4)
[2022-02-26] MEDS ORDERED: DEXTROSE 5%-WATER - 50 ML IVPB ONE ×2 (12:33→16:56)
[2022-02-26] MEDS ORDERED: PIPERACILLIN/TAZOBACTAM 2.25 GM VIAL IVPB ONE ×2 (12:33→16:55)
[2022-02-26] MEDS: levETIRAcetam 250 MG TABLET PO SCH ×2 (12:35→21:41)
[2022-02-26] MEDS: ACETAMINOPHEN 325 MG TABLET (FP) PO PRN (12:35)
[2022-02-26] MEDS: PIPERACILLIN/TAZOB 2.25 GM 2.25 GM in DEXTROSE 5%-WATER - 50 ML IVPB SCH ×2 (12:35→16:59)
[2022-02-26] MEDS: ENOXAPARIN NA (PORCINE) 30 MG/0.3 ML DISP.SYRIN SQ SCH (12:40)
[2022-02-26] MEDS ORDERED: ACETAMINOPHEN 325 MG TABLET (FP) PO PRN (13:11)
[2022-02-27] MEDS ORDERED: PIPERACILLIN/TAZOBACTAM 2.25 GM VIAL IVPB ONE ×2 (01:03→17:45)
[2022-02-27] MEDS ORDERED: DEXTROSE 5%-WATER - 50 ML IVPB ONE ×2 (01:03→17:45)
[2022-02-27] MEDS: PIPERACILLIN/TAZOB 2.25 GM 2.25 GM in DEXTROSE 5%-WATER - 50 ML IVPB SCH ×3 (01:52→17:52)
[2022-02-27] MEDS: levETIRAcetam 250 MG TABLET PO SCH ×2 (09:22→21:28)
[2022-02-27] MEDS: ACETAMINOPHEN 325 MG TABLET (FP) PO PRN ×2 (09:22→16:03)
[2022-02-27] MEDS: CINACALCET HCL 30 MG TAB (FP) PO SCH (09:26)
[2022-02-27] MEDS: POLYETHYLENE GLYCOL (HEALTHYLAX) 3350 17 GM PACKET PO SCH (09:26)
[2022-02-27] MEDS: ENOXAPARIN NA (PORCINE) 30 MG/0.3 ML DISP.SYRIN SQ SCH (09:26)
[2022-02-27] MEDS: SEVELAMER CARBONATE 800 MG TAB (FP) PO SCH ×3 (09:26→17:38)
[2022-02-27] MEDS: CALCITRIOL 0.25 MCG CAPSULE (FP) PO SCH (09:26)
[2022-02-27 09:28] VITALS: BMI 25.4
[2022-02-27] MEDS ORDERED: LIDOCAINE HCL 2% (20ML MULTI-DOSE VIAL) ONE (10:46)
[2022-02-27] MEDS ORDERED: BUPIVACAINE HCL/PF 0.25% (2.5MG/ML) 10 ML VIAL ONE (10:56)
[2022-02-27] MEDS ORDERED: MIDAZOLAM HCL 2 MG/2 ML SINGLE DOSE VIAL ONE (10:59)
[2022-02-27] MEDS ORDERED: PROPOFOL 20 ML ONE ×2 (11:01)
[2022-02-27] MEDS ORDERED: LIDOCAINE HCL 2% (50ML VIAL) INF ONE (11:07)
[2022-02-27] MEDS ORDERED: BUPIVACAINE HCL/PF 0.25% (2.5MG/ML) 10 ML VIAL IJ ONE (11:30)
[2022-02-27] MEDS ORDERED: ACETAMINOPHEN 325 MG TABLET (FP) PO PRN (12:02)
[2022-02-27] MEDS: oxyCODONE HCL 5 MG TABLET PO PRN (18:57)
[2022-02-27] MEDS ORDERED: VANCOMYCIN/WATER FOR INJ (PEG) 1,000 MG/200 ML BAG IVPB ONE (21:12)
[2022-02-27] MEDS: MELATONIN 5 MG TABLETS PO SCH (21:28)
[2022-02-28] MEDS ORDERED: DEXTROSE 5%-WATER - 50 ML IVPB ONE ×3 (00:40→18:06)
[2022-02-28] MEDS ORDERED: PIPERACILLIN/TAZOBACTAM 2.25 GM VIAL IVPB ONE ×3 (00:40→18:06)
[2022-02-28] MEDS: oxyCODONE HCL 5 MG TABLET PO PRN (00:44)
[2022-02-28] MEDS: PIPERACILLIN/TAZOB 2.25 GM 2.25 GM in DEXTROSE 5%-WATER - 50 ML IVPB SCH ×3 (01:11→18:22)
[2022-02-28] MEDS: levETIRAcetam 250 MG TABLET PO SCH ×2 (09:48→21:25)
[2022-02-28] MEDS: APIXABAN 5 MG TABLET PO SCH ×2 (09:48→21:25)
[2022-02-28] MEDS: SEVELAMER CARBONATE 800 MG TAB (FP) PO SCH ×3 (09:48→18:22)
[2022-02-28] MEDS: CALCITRIOL 0.25 MCG CAPSULE (FP) PO SCH (09:48)
[2022-02-28] MEDS: POLYETHYLENE GLYCOL (HEALTHYLAX) 3350 17 GM PACKET PO SCH (09:48)
[2022-02-28] MEDS ORDERED: ENOXAPARIN NA (PORCINE) 30 MG/0.3 ML DISP.SYRIN SQ SCH (10:00)
[2022-02-28] MEDS: CINACALCET HCL 30 MG TAB (FP) PO SCH (10:30)
[2022-02-28] MEDS: ACETAMINOPHEN 325 MG TABLET (FP) PO PRN ×2 (11:30→21:26)
[2022-02-28] MEDS: MELATONIN 5 MG TABLETS PO SCH (21:26)
[2022-03-01] MEDS ORDERED: PIPERACILLIN/TAZOBACTAM 2.25 GM VIAL IVPB ONE (01:08)
[2022-03-01] MEDS ORDERED: DEXTROSE 5%-WATER - 50 ML IVPB ONE (01:08)
[2022-03-01] MEDS: PIPERACILLIN/TAZOB 2.25 GM 2.25 GM in DEXTROSE 5%-WATER - 50 ML IVPB SCH (01:29)
[2022-03-01] MEDS ORDERED: VANCOMYCIN 1 GM in D5W (PRE-DOCKED) 1,000 MG/250 ML IVPB ONE (08:05)
[2022-03-01] MEDS: levETIRAcetam 250 MG TABLET PO SCH (09:49)
[2022-03-01] MEDS: POLYETHYLENE GLYCOL (HEALTHYLAX) 3350 17 GM PACKET PO SCH ×2 (09:49→09:55)
[2022-03-01] MEDS: SEVELAMER CARBONATE 800 MG TAB (FP) PO SCH ×3 (09:50→16:55)
[2022-03-01] MEDS: APIXABAN 5 MG TABLET PO SCH (09:50)
[2022-03-01] MEDS: CALCITRIOL 0.25 MCG CAPSULE (FP) PO SCH (09:51)
[2022-03-01] MEDS: CINACALCET HCL 30 MG TAB (FP) PO SCH (09:51)
[2022-03-01 15:26] VITALS: TEMP 98.8
[2022-03-01 16:15] VITALS: BP 113/66; PULSE 78
== END 2022-03-01 18:36 | disposition home health service (06) | DRG 602 ==
LOC: JER 11:58 → JERBED 20:23 → J7W 02-26 05:22
PROVIDERS: ADMIT Hospitalist; ATTEND Internal Medicine
PROC: 5A1D70Z Performance of Urinary Filtration, Intermittent, Less than 6 Hours Per Day (ICD-10-PCS; 2022-02-26)
PROC: 0JBQ0ZX Excision of Right Foot Subcutaneous Tissue and Fascia, Open Approach, Diagnostic (ICD-10-PCS; 2022-02-27)
PROC: 0J9Q0ZX Drainage of Right Foot Subcutaneous Tissue and Fascia, Open Approach, Diagnostic (ICD-10-PCS; principal; 2022-02-27 10:30)
DX: L02.611 Cutaneous abscess of right foot (principal); N18.6 End stage renal disease; I69.351 Hemiplegia and hemiparesis following cerebral infarction affecting right dominant side; I13.2 Hypertensive heart and chronic kidney disease with heart failure and with stage 5 chronic kidney disease, or end stage renal disease; I50.32 Chronic diastolic (congestive) heart failure; I25.10 Atherosclerotic heart disease of native coronary artery without angina pectoris; Z99.2 Dependence on renal dialysis; E78.00 Pure hypercholesterolemia, unspecified; Z86.16 Personal history of COVID-19; G40.909 Epilepsy, unspecified, not intractable, without status epilepticus; I48.91 Unspecified atrial fibrillation; B95.62 Methicillin resistant Staphylococcus aureus infection as the cause of diseases classified elsewhere
CPT/HCPCS: 0241U-QW; 36415; 73630-TC-RT-FY; 73718-TC-RT; 80048; 80053; 80177; 82962; 83735; 85025; 85610; 85730; 86803; 86850; 86900; 86901; 87040; 87070; 87186; 87205; 87340; 88304-TC; 90715; 93005; 93010; 94760; 99285-25; G0480